=== PATIENT | female | born 1975 | race Caucasian/White ===

== ENCOUNTER 2021-02-14 09:12 | Outpatient (RCR) | payer OTHER | END 2021-05-15 | disposition home or self-care (01) | LOC: PT | DX: M25.512 Pain in left shoulder (principal) ==

== ENCOUNTER → 2023-06-05 | Outpatient (CLI) | payer OTHER | LOC: RAD 14:07 | DX: M25.562 Pain in left knee (principal) ==

== ENCOUNTER → 2023-06-24 | Outpatient (CLI) | payer OTHER | LOC: RAD 08:28 | DX: S83.512A Sprain of anterior cruciate ligament of left knee, initial encounter (principal); S70.12XA Contusion of left thigh, initial encounter; X58.XXXA Exposure to other specified factors, initial encounter ==